=== PATIENT | female | born 1990 | race Native Hawaiian/Other Pacific Islander ===

== ENCOUNTER 2021-08-03 08:51 | Emergency (ER) | payer OTHER ==
[~2021-08-03] VITALS: Ht 152.4 cm; Wt 67.1 kg
[2021-08-03 09:50] LABS: POTASSIUM 3.5 mmol/L (3.6-5.2)
[2021-08-03 09:55] LABS: PLATELET COUNT 198 K/uL (152-353)
[2021-08-03 11:25] VITALS: BP 131/91; TEMP 98.4
== END 2021-08-03 11:29 | disposition home or self-care (01) ==
LOC: ED 08:51
PROVIDERS: Emergency Medicine Emergency Medical Services
DX: Z3A.12 12 weeks gestation of pregnancy (principal); R51.9 Headache, unspecified
CPT/HCPCS: 36415; 80048; 83735; 85027; 96360; 96374; 96375; 99284; J1200; J2270; J2405